=== PATIENT | male | born 1950 | race Caucasian/White ===

== ENCOUNTER 2016-12-05 01:54 | Emergency (ER) | payer MEDICARE, OTHER ==
[~2016-12-05] VITALS: Ht 180.3 cm; Wt 117.3 kg
[2016-12-05 02:09] VITALS: BP 160/86
[2016-12-05] MEDS ORDERED: PERC5TAB12 PO (03:45)
[2016-12-05] MEDS ORDERED: NAPR500T PO (03:45)
[2016-12-05] MEDS ORDERED: PERCOCET 5MG/325MG TAB As Ordered ONE (04:13)
--- NOTE | 2016-12-05 08:05 | REP ---
Left femur four views including left hip : There is no fracture or dislocation. Mineralization and joint spaces are normal. There are no calcifications or foreign bodies. Impression: Negative left femur . Signed by David Valenzuela MD 12/05/2016 07:55 A
== END 2016-12-05 06:30 | disposition home or self-care (01) ==
LOC: M ED 01:54 → EDBD 01:54 → M ED 06:30
DX: S73.102A Unspecified sprain of left hip, initial encounter (principal); W19.XXXA Unspecified fall, initial encounter; Y92.019 Unspecified place in single-family (private) house as the place of occurrence of the external cause; Y93.89 Activity, other specified; Y99.8 Other external cause status; Z88.1 Allergy status to other antibiotic agents; Z88.8 Allergy status to other drugs, medicaments and biological substances